=== PATIENT | female | born 1995 | race Caucasian/White ===

== ENCOUNTER 2017-04-08 13:35 | Emergency (ER) | payer SELFPAY ==
[~2017-04-08] VITALS: Ht 160 cm; Wt 99.8 kg
[~2017-04-08 13:35] MED LIST: CLIN300C3 PO; LEVO500T78 PO
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
[2017-04-08] MEDS ORDERED: OSLT75C PO ×2 (13:56→14:20)
--- NOTE | 2017-04-08 13:56 | ED Cough/URI ---
General Chief Complaint: Cough/Cold/Flu Symptoms Stated Complaint: FLU-LIKE SYMPTOMS,COPD,ASTHMA,TIGHTNESS IN CHEST Source: patient Exam Limitations: no limitations History of Present Illness Date Seen by Provider: Apr 08, 2017 Time Seen by Provider: 13:52 Initial Comments To ER with a 2 day history of nausea, vomiting after coughing spells, diarrhea, general malaise, body aches and tightness in her chest. She reports a history of asthma. She has a albuterol nebulizer at home that she's been using several times per day. She is not on any other medications. She does continue to smoke about a half pack per day. She's had chills but no measured fevers. Cough is productive. Timing/Duration: constant Severity/Quality: moderate Associated Symptoms: cough, fever/chills, shortness of breath, wheezing Allergies and Home Medications Allergies Coded Allergies: Cephalosporins (Unverified Allergy, Unknown, 01/22/14) amoxicillin (Unverified Allergy, Unknown, 01/22/14) Home Medications Albuterol Sulfate 1 Puff Puff, Unknown Dose IH Q4H, (Reported) 1 PUFF = 90 MCG Constitutional: see HPI, chills, malaise, weakness EENTM: see HPI Respiratory: see HPI, cough Cardiovascular: no symptoms reported Genitourinary: no symptoms reported Musculoskeletal: no symptoms reported Skin: no symptoms reported Psychiatric/Neurological: No Symptoms Reported Past Oputrtf-Gewlvk-Pnnecu Hx Patient Social History Type Used: Cigarettes Recent Foreign Travel: No Contact w/Someone Who Travel: No Recent Hopitalizations: No Immunizations Up To Date Tetanus Booster (TDap): Less than 5yrs Surgeries Surgeries: Gallbladder Respiratory Respiratory Disorders: Asthma Reproductive System Hx Reproductive Disorders: No Sexually Transmitted Disease: No Family Medical History Significant Family History: No Pertinent Family Hx Physical Exam Vital Signs Vital Sign - Last 12Hours 04/08/17 13:46 Temp 97.8 Pulse 75 Resp 18 B/P (MAP) 115/80 (92) Pulse Ox 97 Capillary Refill : General Appearance: WD/WN, no apparent distress Eyes: Bilateral Eye Normal Inspection, Bilateral Eye PERRL, Bilateral Eye EOMI HEENT: PERRL/EOMI, normal ENT inspection, TMs normal, pharynx normal Neck: non-tender, full range of motion Respiratory: normal breath sounds, no respiratory distress, no accessory muscle use, No decreased breath sounds, No crackles, No wheezing Cardiovascular: regular rate, rhythm, no murmur Gastrointestinal: normal bowel sounds, non tender, soft Neurologic/Psychiatric: alert, normal mood/affect, oriented x 3 Skin: normal color, warm/dry Progress/Results/Core Measures Suspected Sepsis SIRS Temperature: Pulse: Respiratory Rate: Blood Pressure / Mean: Results/Orders Micro Results Microbiology 04/08/17 Influenza Types A,B Antigen (CLIFF) - Final, Complete My Orders Orders - SUSANNE BENAVIDEZ APRN Chest Pa/Lat (2 View) (04/08/17 13:51) Influenza A And B Antigens (04/08/17 13:51) Vital Signs/I&O Vital Sign - Last 12Hours 04/08/17 13:46 Temp 97.8 Pulse 75 Resp 18 B/P (MAP) 115/80 (92) Pulse Ox 97 Capillary Refill : Departure Impression Impression: Primary Impression: Influenza Disposition: 01 HOME, SELF-CARE Condition: Stable Departure-Patient Inst. Decision time for Depature: 13:54 Referrals: LAUREEN MIXON MD (PCP/Family) Primary Care Physician Patient Instructions: Flu Add. Discharge Instructions: 1. Drink plenty of fluids. Do your best to constantly be sipping on some sort of drink. Pedialyte or Gatorade would be great. Tylenol and Motrin for fever control. The symptoms unfortunately stick around for 5-7 days.All discharge instructions reviewed with patient and/or family. Use either the prescribed cough medication or DayQuil/NyQuil yiwe-igg-gbsmyty cough medications however do not use both. Follow-up with your doctor within 1 week. Return to ER for any worsening shortness of breath or other concerns. Voiced understanding. Scripts Promethazine HCl/Codeine (Promethazine-Codeine Syrup) 118 Ml Syrup 5 ML PO Q6H Y for COUGH, #60 ML Prov: SUSANNE BENAVIDEZ APRN 04/08/17 Oseltamivir Phosphate (Tamiflu) 75 Mg Cap 75 MG PO BID, #10 CAP Prov: SUSANNE BENAVIDEZ APRN 04/08/17 Work/School Note: Local Medical Staff Listing, Work Release Form Date Seen in the Emergency Department: Apr 08, 2017 Return to Work: Apr 12, 2017 SUSANNE BENAVIDEZ APRN Apr 08, 2017 13:56
--- NOTE | 2017-04-08 14:10 | Diagnostic Imaging Report ---
Indication: Cough and fever. TIME OF EXAM: 2:24 PM COMPARISON: Correlation is made with prior chest from 12/17/2011. FINDINGS: The heart size is normal. The pulmonary vascularity is unremarkable. The lungs are clear. No infiltrate, effusion or pneumothorax is detected. IMPRESSION: No acute cardiopulmonary process is detected. Dictated by: Dictated on workstation # [id number]
[2017-04-08] MEDS ORDERED: RT-ALBUINH IH (14:15)
[2017-04-08] MEDS ORDERED: CODE118S2 PO (14:20)
[2017-04-08 14:30] VITALS: BP 115/80
== END 2017-04-08 14:31 | disposition home or self-care (01) ==
LOC: EDUNIT# 13:35 → ER 13:38
DX: J11.1 Influenza due to unidentified influenza virus with other respiratory manifestations (principal); J45.909 Unspecified asthma, uncomplicated; Z88.1 Allergy status to other antibiotic agents; Z98.890 Other specified postprocedural states
CPT/HCPCS: 71046; 87804; 99282

== ENCOUNTER 2018-05-31 19:41 | Emergency (ER) | payer MEDICAID, OTHER ==
[~2018-05-31] VITALS: Ht 157.5 cm; Wt 93.0 kg
[~2018-05-31 19:41] MED LIST changes: +CODE118S4 PO; +OSLT75C PO; +RT-ALBUINH IH
--- OUTSIDE RECORDS SUMMARY | 2018-05-31 19:59 | XMS REPORT ---
Author Author ANGELI MAYER Organization [facility] Address [address] [place] [address] Care Team Providers Care Pilot Plant Supervisor Name Role Phone ANGELI MAYER Unavailable PROBLEMS Unknown Problems ALLERGIES No Information ENCOUNTERS Encounter Location Date Diagnosis [facility] [id number] [place] [phone] Feb, Threatened miscarriage O20.0 [facility] [id number] [place] [phone] Feb, Threatened miscarriage O20.0 [facility] [id number] [place] [phone] Feb, Encounter for test, result unknown Z32.00 [facility] [id number] [place] [phone] Apr, Influenza J11.1 [facility] [id number] [place] [phone] Jan, Dental examination Z01.20 [facility] [address] [place] [phone] Dec, Dental examination Z01.20 IMMUNIZATIONS No Known Immunizations SOCIAL HISTORY Never Assessed REASON FOR VISIT Lab PLAN OF CARE Activity Details Pending Test HCG, QUANTITATIVE VITAL SIGNS MEDICATIONS Unknown Medications RESULTS No Results PROCEDURES Procedure Date Ordered Result Body Site VENIPUNCT, ROUTINE* Feb 13, 2018 INSTRUCTIONS MEDICATIONS ADMINISTERED No Known Medications MEDICAL (GENERAL) HISTORY Type Description Date Medical History asthma Medical History bronchitis Surgical History Gallbladder removal 2012
--- OUTSIDE RECORDS SUMMARY | 2018-05-31 19:59 | XMS REPORT ---
Author Author CODEY CALDERON Organization [facility] Address [address] [place] [address] Care Team Providers Care Cement Mixer Name Role Phone CODEY CALDERON Unavailable PROBLEMS Unknown Problems ALLERGIES Substance Reaction Event Type Date Status amoxicillin Unknown Non Drug Allergy Dec, Active penicillin Unknown Non Drug Allergy Dec, Active ENCOUNTERS Encounter Location Date Diagnosis [facility] [place] [address] [place] [phone] Apr, Influenza J11.1 [facility] [address] [phone] Jan, Dental examination Z01.20 [facility] [address] [phone] Dec, Dental examination Z01.20 IMMUNIZATIONS No Known Immunizations SOCIAL HISTORY Never Assessed REASON FOR VISIT [place] PLAN OF CARE Activity Details Follow Up prn Reason:Re evaluation #14 and #15 VITAL SIGNS MEDICATIONS Medication Instructions Dosage Frequency Start Date End Date Duration Status Clindamycin HCl 150 MG Orally every 8 hrs 1 capsule 8h Dec,Dec 7 days Active RESULTS No Results PROCEDURES Procedure Date Ordered Result Body Site LTD ORAL EVALUATION - PROBLEM FOCUS Dec 27, 2016 INTRAORL-PERIAPICAL 1 FILM [id number] Dec 27, 2016 Billing Notes on claim Dec 27, 2016 BITEWING - SINGLE FILM Dec 27, 2016 INSTRUCTIONS MEDICATIONS ADMINISTERED No Known Medications MEDICAL (GENERAL) HISTORY Type Description Date Medical History asthma Medical History bronchitis Surgical History Gallbladder removal 2012
--- OUTSIDE RECORDS SUMMARY | 2018-05-31 19:59 | XMS REPORT ---
Author Author LYLE SEXTON Organization [facility] Address [address] [place] [address] Care Team Providers Care Graduate Research Assistant Name Role Phone LYLE SEXTON Unavailable PROBLEMS Unknown Problems ALLERGIES No Information ENCOUNTERS Encounter Location Date Diagnosis [facility] [address], [place] [phone] Feb, Encounter for test, result unknown Z32.00 [facility] [address] [place] [address] Apr, 2017 Influenza J11.1 [facility] [address] [phone] Jan, Dental examination Z01.20 [facility] [address] [place] [phone] Dec, Dental examination Z01.20 IMMUNIZATIONS No Known Immunizations SOCIAL HISTORY Never Assessed REASON FOR VISIT test (walk-in) PLAN OF CARE VITAL SIGNS MEDICATIONS Unknown Medications RESULTS Name Result Date Reference Range TEST, URINE (IN HOUSE) 2018-02-06 RESULTS Positive Lot # [id number] Control + Exp date 07/2019 PROCEDURES Procedure Date Ordered Result Body Site URINE TEST Feb 06, 2018 INSTRUCTIONS MEDICATIONS ADMINISTERED No Known Medications MEDICAL (GENERAL) HISTORY Type Description Date Medical History asthma Medical History bronchitis Surgical History Gallbladder removal 2012
--- OUTSIDE RECORDS SUMMARY | 2018-05-31 19:59 | XMS REPORT ---
Author Author ANGELI MAYER Organization [facility] Address [address] [place] [address] Care Team Providers Care Multimedia Coordinator Name Role Phone ANGELI MAYER Unavailable PROBLEMS Unknown Problems ALLERGIES No Information ENCOUNTERS Encounter Location Date Diagnosis [facility] [id number] [place] [phone] Feb, First trimester Z34.91 and Threatened miscarriage O20.0 [facility] [id number] [place] [phone] Feb, Threatened miscarriage O20.0 and First trimester Z34.91 [facility] [id number] [place] [phone] Feb, Threatened miscarriage O20.0 [facility] [id number] [place] [phone] Feb, Encounter for test, result unknown Z32.00 [facility] [id number] [place] [phone] Apr, Influenza J11.1 [facility] [address] [place] [phone] Jan, Dental examination Z01.20 [facility] [address] [place] [phone] Dec, Dental examination Z01.20 IMMUNIZATIONS No Known Immunizations SOCIAL HISTORY Never Assessed REASON FOR VISIT Patient Concerns PLAN OF CARE VITAL SIGNS MEDICATIONS Unknown Medications RESULTS No Results PROCEDURES No Known procedures INSTRUCTIONS MEDICATIONS ADMINISTERED No Known Medications MEDICAL (GENERAL) HISTORY Type Description Date Medical History asthma Medical History bronchitis Surgical History Gallbladder removal 2012
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
--- OUTSIDE RECORDS SUMMARY | 2018-05-31 19:59 | XMS REPORT ---
Author Author LILI CARR Organization [facility] Address [address] [place] [address] Care Team Providers Care Field Crop Farming Supervisor Name Role Phone LILI CARR Unavailable PROBLEMS Unknown Problems ALLERGIES Substance Reaction Event Type Date Status amoxicillin Unknown Non Drug Allergy Apr, Active penicillin Unknown Non Drug Allergy Apr, Active ENCOUNTERS Encounter Location Date Diagnosis [facility] [id number] [place] [phone] Apr, Influenza J11.1 [facility] [id number] [phone] Jan, Dental examination Z01.20 [facility] [address] [place] [phone] Dec, Dental examination Z01.20 IMMUNIZATIONS No Known Immunizations SOCIAL HISTORY Never Assessed REASON FOR VISIT Vomiting that started last week. PT was already diagnosed with Flu A and can't hold down her medications-[facility] De [facility] PLAN OF CARE Activity Details Follow Up prn Reason: VITAL SIGNS Height 62 in 2017-04-12 Weight 215.8 lbs 2017-04-12 Temperature 97.9 degrees Fahrenheit 2017-04-12 Heart Rate 84 bpm 2017-04-12 Respiratory Rate 20 2017-04-12 BMI 39.47 kg/m2 2017-04-12 Blood pressure systolic 122 mmHg 2017-04-12 Blood pressure diastolic 76 mmHg 2017-04-12 MEDICATIONS Medication Instructions Dosage Frequency Start Date End Date Duration Status Promethazine HCl 25 MG Orally every 6 hrs, prn nausea 1 tab Apr, Active RESULTS No Results PROCEDURES No Known procedures INSTRUCTIONS MEDICATIONS ADMINISTERED No Known Medications MEDICAL (GENERAL) HISTORY Type Description Date Medical History asthma Medical History bronchitis Surgical History Gallbladder removal 2012
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
[2018-05-31 20:02] VITALS: BP 112/72
== END 2018-05-31 21:07 | disposition left against medical advice (07) ==
LOC: EDUNIT# 19:41 → ER 19:43
DX: O26.892 Other specified pregnancy related conditions, second trimester (principal); R04.0 Epistaxis; R51 Headache; Z3A.21 21 weeks gestation of pregnancy
CPT/HCPCS: 99282

== ENCOUNTER → 2018-08-15 | Outpatient (CLI) | payer MEDICAID ==
[~2018-08-15] MED LIST changes: +FERR325T18 PO; +IBUP-844 PO
--- NOTE | 2018-08-15 12:03 | Diagnostic Imaging Report ---
PROCEDURE: US Renal Bilateral. TECHNIQUE: Multiple real-time grayscale images were obtained over the kidneys in various projections bilaterally. INDICATION: Flank pain, hematuria. FINDINGS: There are no prior renal ultrasound examinations available for comparison. The CT abdomen/pelvis exam of 11/17/2015 failed to show any abnormality of the kidneys or bladder. By history, the patient is approximately 32 weeks gestation. Both kidneys were identified. The right kidney measures 10.8 x 4.8 x 5.3 cm while the kidney is estimated to be 9.0 x 5.1 x 4.6 cm. There is no evidence for a solid renal mass or hydronephrosis of either kidney. There is no evidence of nephrolithiasis either. The bladder is only partially filled and consequently not well evaluated. There is no obvious bladder abnormality evident. Neither ureteral jet was visualized. IMPRESSION: 1. There is no evidence for a solid renal mass or for an acute abnormality of either kidney. 2. The bladder was not well visualized. Dictated by: Dictated on workstation # [id number]
== END ==
LOC: RAD 10:32
PROVIDERS: ATTEND Nurse Practitioner Family
DX: R31.9 Hematuria, unspecified (principal); R10.9 Unspecified abdominal pain
CPT/HCPCS: 76770

== ENCOUNTER 2018-08-16 08:03 | Inpatient (IN) | payer MEDICAID ==
[~2018-08-16] VITALS: Ht 157.5 cm; Wt 93.0 kg
[2018-08-16] VITALS (8 sets, daily range): BP systolic 111–134; BP diastolic 67–84
--- NOTE | 2018-08-16 08:00 | NUR ---
Delivery of viable female in ED prior to this RN's arrival. pt in cot at this time with Dr Mendosa at bedside along with ED staff and Dr Goodson (who is taking care of premature infant just born). 0806 Dr Mendosa delivered intact placenta and fundal massage per dr mendosa. Noted moderate bleeding. Pt with IV fluids infusing to gravity and vitals monitors on along with 02 per nasal cannula continued at this time. 0810 ED RN assessed IV started by EMS to be leaking, that IV discontinued along with iv fluids 0814 this rn started IV in right hand 0815 infusing pitocin wide open to gravity as ordered.
[~2018-08-16 08:03] MED LIST changes: -FERR325T18 PO; -IBUP-844 PO
--- NOTE | 2018-08-16 08:21 | NUR ---
Transferred to on cart to room 313. Assisted to bed. moderate bleeding noted and large clot expressed during bed transfer. noted fundus ff2/u.
--- NOTE | 2018-08-16 08:25 | NUR ---
Dr Hutchinson to bedside and reviewed plan of care of with pt along with plan of care for her. fundal massage per dr hutchinson with large clot expressed, moderate bleeding noted.
--- NOTE | 2018-08-16 08:28 | Emergency Rm Delivery - Mom ---
HPI General Stated Complaint: LABOR Source of Information: Patient, EMS, RN/MD History Gestational Age in Weeks: 32 Hx : 1 Hx Para: 0 History of Present Illness Date Seen by Provider: Aug 16, 2018 Time Seen by Provider: 08:00 Initial Comments Here by EMS from [facility] in route to the OB floor here when mother ultimately precipitously delivered on the EMS cot while in the emergency department. On arrival here, mother was reportedly needing to push and she had been doing this for some time apparently. Once entered the ER, was noted. Patient was moved to trauma room and precipitous delivery occurred. Patient reports that she is approximately 32 weeks. Apparently she had gush of fluid at 2 AM and went to the emergency department in [place] sometime around 6 AM. They were trying to transfer and ultimately brought her here with Dr. Mendosa assisting with transport in the ambulance and at patient's bedside. Patient did have care with Dr. Hutchinson. Onset of Labor - Date: Aug 16, 2018 Onset of Labor - Time: 02:00 Spontaneous Ruture of Membrane: Yes Amniotic Membrane Rupture Time: 02:00 Amniotic Membrane Fluid Descri: Bloody Vaginal Bleeding Description (: unknown prior to delivery but moderate after delivery Complications Events: Labor <37 wks, Prematre Rupture Membrane Intrapartal Events: Bleeding L&D Stage II Delivery Date/Time - Stage II Delivery Date: Aug 16, 2018 Delivery Time: 08:00 Delivery Duration: precipitous on arrival to the emergency department Cord Descript/Complications Cord Vessel Description: 3 Vessels Delivery Type Infant Delivery Method: Spontaneous Vaginal Episiotomy/Perineal Laceration Laceraction(s)/Extensions: Yes Episiotomy Description: Midline Condition of Delivery Delivery Date & Time: 08/16/18 at 0 800 1 minute Comment: 4 5 minute Comment: 5 Condition of Condition of : Living Resuscitation Resuscitation Comments: Care assumed by bindery chief and nursery nurses. Initial vigorous stimulation and warming maneuvers with spontaneous respirations noted. Bulb suctioning completed. Placed on a warmer and resuscitation continued with heart rate initially 120. Oxygen initiated. Advanced maneuvers by bindery chief and nursery team L&D Stage III Stage III Stage III Date: Aug 16, 2018 Stage III Time: 08:06 Pictocin Pitocin Administration Comment: 30 units Pitocin premixed bag initiated bolus rate. Placenta Delivery Placenta Delivery: Spontaneous Departure Physician Communication Time/Spoke - TRAILER PARK MANAGER: 08:03 Time/Spoke - [place] Physician: 08:04 Impression Primary Impression: [place] delivered in emergency department Additional Impression: 32 weeks gestation of Disposition: 09 ADMITTED INPATIENT Condition: Stable Admissions Decision to Admit Reason: Admit from ER (General) Decision to Admit/Date: Aug 16, 2018 Time/Decision to Admit Time: 08:21 SAM BRUMFIELD MD Aug 16, 2018 08:28
--- NOTE | 2018-08-16 08:32 | NUR ---
Cytotec given rectally per Dr Hutchinson
--- NOTE | 2018-08-16 08:35 | NUR ---
Vital signs stable. ff1/u with moderate rubra noted.
--- NOTE | 2018-08-16 08:36 | NUR ---
Pitocin infusing to pump at 999ml/hr
--- NOTE | 2018-08-16 08:50 | NUR ---
Vital signs stable. ff1/u with lt rubra noted, no clots expressed.
--- NOTE | 2018-08-16 08:58 | NUR ---
Perineal examined per dr drake for tears/lacerations. None noted.
[2018-08-16] MEDS ORDERED: OXYTOCIN/NORMAL SALINE 500 ML IV SCH (09:12)
[2018-08-16] MEDS ORDERED: TETANUS,DIPTH,PERTUSS P/F (BOOSTRIX) 0.5 ML VIAL IM ONE (09:15)
[2018-08-16] MEDS ORDERED: WITCH HAZEL(TUCKS) 40 EA JAR TOP PRN (09:15)
[2018-08-16] MEDS ORDERED: MEASLES,MUMPS,RUBELLA 1 EA INJ SQ ONE (09:15)
[2018-08-16] MEDS ORDERED: BENZOCAINE/MENTHOL (DERMOPLAST) 56 ML CAN TP PRN (09:15)
[2018-08-16] MEDS ORDERED: MISOPROSTOL 200 MCG (CYTOTEC) TABLET PO ONE (09:15)
--- NOTE | 2018-08-16 09:20 | NUR ---
ff1/u with lt rubra noted, no clots expressed. vital signs stable.
--- NOTE | 2018-08-16 09:27 | History & Physical-OB ---
OB - Chief Complaint & HPI Date/Time Date of Admission: Date of Admission: Aug 16, 2018 at 08:18 Date seen by a Provider: Aug 16, 2018 Time Seen by a Provider: 09:00 Chief Complaint/History OB-Reason for Admission/Chief: Rupture of Membranes Hx : 1 Hx Para: 0 Gestational Age in Weeks: 32 History of Labs B+, Ab neg Rub Imm HIV/HepB/RPR NR 1hr GTT normal GBS unknown Allergies and Home Medications Allergies Coded Allergies: Cephalosporins (Unverified Allergy, Unknown, 01/22/14) amoxicillin (Unverified Allergy, Unknown, 01/22/14) Home Medications Albuterol Sulfate 1 Puff Puff, Unknown Dose IH Q4H, (Reported) 1 PUFF = 90 MCG Oseltamivir Phosphate 75 Mg Cap, 75 MG PO BID Prescribed by: SUSANNE BENAVIDEZ on 04/08/17 1420 Promethazine HCl/Codeine 118 Ml Syrup, 5 ML PO Q6H PRN for COUGH Prescribed by: SUSANNE BENAVIDEZ on 04/08/17 1420 Patient Home Medication List Home Medication List Reviewed: Yes OB - History Hx of Present Care: Yes Ultrasounds: Normal mid trimester US Obstetrical Complications: None Medical Complications: None Obstetrical History Hx : 1 Hx Para: 0 Delivery History Hx Blood Disorders: No Patient Past Medical History Asthma, Mild intermittent Social History/Family History HIV/AIDS: No Recent Infectious Disease Expo: No Sexually Transmitted Disease: No Alcohol Use: Denies Use Immunizations Tetanus Booster (TDap): Less than 5yrs Rubella: immune RPR/VDRL: Negative GBS Status: Unknown HBsAG: Negative OB - Admission Exam Physical Exam Vitals: Vital Signs 08/16/18 08/16/18 08:03 08:21 Pulse 114 Resp 18 B/P (MAP) 110/97 (101) Pulse Ox 100 O2 Delivery Nasal Cannula HEENT: NCAT Lungs: Clear Abdomen: Other (delivered in ER, boggy above umbilicus, passed large clots with fundal massage) Extremities: Normal Reflexes: Normal OB - Assessment/Plan/Diagnosis Assessment Assessment: labor, rupture of membranes Admission Dx delivery of female Admission Status: Inpatient Order (span 2 midnights) Reason for Inpatient Admission: Delviery Plan Other Plan 23 yo G1 now P1 delivered female in ER @ 32 weeks gestation Routine post care Post Hemorrhage 1000 cc blood loss, Pitocin x2, Cytotec 800 mcg MT, Start Iron Encourage pumping for ANGELI MAYER MD Aug 16, 2018 09:27
--- NOTE | 2018-08-16 09:27 | Postpartum Progress Note ---
Note Note Post Subjective: Patient delivered in ER this AM. Arrived in ER to and patient had approximately 500 cc of blood loss. Starting Pitocin. Cytotec given once mother arrived on floor. VS stable. Mother denies any vision changes or dizziness. Additional History: Mother states that she started having pain yesterday and was seen in the clinic. Upper back pain at that time. Was sent for US for kidney stones that was normal. Mother states that around 2 AM she had a gush of fluid and thought that she had urinated. Around 5 AM pain started to get worse and she presented to [place] ER and was then transferred to with Dr Criselda wolfe. Objective: Physical Exam: General - Alert and oriented, no apparent distress Abdomen - Soft, appropriately tender to palpation, non-distended, fundus firm at umbilicus Vaginal: Small first degree tear that is not bleeding, does not require repair Extremities - no edema, negative Fercho's bilaterally Assessment: Delivery of female infant 32 weeks Gestation Post Hemorrhage 1010 cc SROM at home Plan: s/p Pitocin x2 bags and 800 mcg Cytotec Encourage pumping for Will monitor bleeding closely, if Hgb stable ok to d/c in AM Vitals - Labs Vital Signs - I&O Vital Signs Date Time Temp Pulse Resp B/P (MAP) Pulse Ox O2 Delivery O2 Flow Rate FiO2 08/16/18 08:21 114 18 110/97 (101) 100 08/16/18 08:03 114 18 110/97 (101) 100 Nasal Cannula ANGELI MAYER MD Aug 16, 2018 09:27
--- NOTE | 2018-08-16 10:25 | NUR ---
Info packet discussed. ordering process discussed with pt.
--- NOTE | 2018-08-16 10:25 | NUR ---
ff1/u with lt-mod rubra noted, no clots expressed. vital signs stable.
--- NOTE | 2018-08-16 11:35 | NUR ---
Lab to room for blood draw.
[2018-08-16 11:50] LABS: BASOPHILS % (AUTO) 0 % (0-10); EOSINOPHILS % (AUTO) 0 % (0-10); HEMATOCRIT 28 % (35-52); HEMOGLOBIN 9.5 G/DL (11.5-16.0); LYMPHOCYTES # (AUTO) 0.6 X 10^3 (1.0-4.0); LYMPHOCYTES % (AUTO) 3 % (12-44); MEAN CORPUSCULAR HEMOGLOBIN 33 PG (25-34); MEAN CORPUSCULAR HGB CONC 35 G/DL (32-36); MEAN CORPUSCULAR VOLUME 95 FL (80-99); MONOCYTES % (AUTO) 5 % (0-12); NEUTROPHILS # (AUTO) 19.4 X 10^3 (1.8-7.8); NEUTROPHILS % (AUTO) 92 % (42-75); PLATELET COUNT 203 10^3/uL (130-400); RED CELL DISTRIBUTION WIDTH 12.6 % (10.0-14.5)
--- NOTE | 2018-08-16 11:55 | NUR ---
Assisted up to void, pericare, pad changed and underwear on. ambulates well. denies being dizzy or lightheaded. fresh ice water to bedside table.
[2018-08-16] MEDS: IBUPROFEN 600 MG (MOTRIN) TAB PO SCH ×2 (12:00→18:00)
--- NOTE | 2018-08-16 13:30 | NUR ---
Pt up to shower at this time.
[2018-08-16] MEDS ORDERED: CATHETER FLUSH 10 ML SYR IV SCH (14:00)
--- NOTE | 2018-08-16 14:30 | NUR ---
electric breastpump to pt bedside and pt instructed/educated on use and frequency. pt verbalized understanding
[2018-08-16 18:43] LABS: HEMOGLOBIN 9.7 G/DL (11.5-16.0)
[2018-08-16] MEDS ORDERED: DOCUSATE SODIUM 100 MG (COLACE) CAP PO SCH (21:00)
[2018-08-17 05:21] VITALS: BP 100/58
[2018-08-17 05:53] LABS: BASOPHILS % (AUTO) 0 % (0-10); EOSINOPHILS # (AUTO) 0.2 10^3/uL (0.0-0.3); EOSINOPHILS % (AUTO) 2 % (0-10); HEMATOCRIT 27 % (35-52); HEMOGLOBIN 8.9 G/DL (11.5-16.0); LYMPHOCYTES # (AUTO) 1.7 X 10^3 (1.0-4.0); LYMPHOCYTES % (AUTO) 17 % (12-44); MEAN CORPUSCULAR HEMOGLOBIN 33 PG (25-34); MEAN CORPUSCULAR HGB CONC 34 G/DL (32-36); MEAN CORPUSCULAR VOLUME 97 FL (80-99); MONOCYTES # (AUTO) 0.9 X 10^3 (0.0-1.0); MONOCYTES % (AUTO) 9 % (0-12); NEUTROPHILS # (AUTO) 7.4 X 10^3 (1.8-7.8); NEUTROPHILS % (AUTO) 73 % (42-75); PLATELET COUNT 192 10^3/uL (130-400); RED CELL DISTRIBUTION WIDTH 12.7 % (10.0-14.5); WHITE BLOOD COUNT 10.1 10^3/uL (4.3-11.0)
[2018-08-17] MEDS ORDERED: FERROUS SULF 325 MG (IRON) TAB PO SCH (07:00)
[2018-08-17] MEDS ORDERED: PRENATAL VITAMIN 1 EA TAB PO SCH (07:00)
--- NOTE | 2018-08-17 07:25 | Discharge Summary ---
Diagnosis/Chief Complaint Date of Admission Aug 16, 2018 at 08:18 Date of Discharge 08/17/18 Admission Diagnosis Admission Diagnosis Labor 32 week gestation PROM Discharge Diagnosis Delivery 32 week gestation Post Hemorrhage Discharge Summary-Simple/Stand Procedures Discharge Physical Examination Allergies: Coded Allergies: Cephalosporins (Unverified Allergy, Unknown, 01/22/14) amoxicillin (Unverified Allergy, Unknown, 01/22/14) Vitals & I&Os Vital Sign - Last 12Hours Date Time Temp Pulse Resp B/P (MAP) Pulse Ox O2 Delivery O2 Flow Rate FiO2 08/17/18 05:21 98.5 84 18 100/58 (72) 98 Room Air General Appearance: Alert, Oriented X3, Cooperative HEENT: Mucous Memb Moist/[place] Respiratory: Clear to Auscultation, Normal Air Movement Cardiovascular: Regular Rate, No Murmurs Abdominal: Normal Bowel Sounds, Soft, No Tenderness, Other (Fundus firm and at umbilicus) Extremities: No Edema, No Tenderness/Swelling Neuro: Strength at 5/5 X4 Ext Psych/Mental Status: Mental Status NL, Mood NL Hospital Course Was the Problem List Reviewed?: Yes See final discharge diagnosis. Discussion & Recommendations 23 yo G1 now P1 that delivered 32 week infant in ER after SROM at home @ 2AM, complicated by PPD 1000cc s/p pitocin and cytotec. Home on PPD#1 Discharge Condition at discharge stable Instructions to patient/family Please see electronic discharge instructions given to patient. Discharge Medications Reviewed and agree with Discharge Medication list on patient's Discharge Instruction sheet Clinical Quality Measures DVT/VTE Risk/Contraindication: Risk Factor Score Per Nursin RFS Level Per Nursing on Admit: 1=Low/No VTE PPX Copy Copies To 1: ANGELI MAYER MD, HOLLY R MD Aug 17, 2018 07:24
[2018-08-17] MEDS ORDERED: IBUP-844 PO (07:27)
[2018-08-17] MEDS ORDERED: FERR325T18 PO (07:27)
--- NOTE | 2018-08-17 07:28 | Discharge Instructions ---
Discharge Inst-Women's Serv Depart Medications New, Converted or Re-Newed RX: Transmitted to Pharmacy New Medications: Ferrous Sulfate (Ferrous Sulfate) 325 Mg Tablet 325 MG PO DAILY@0700, #30 TAB Ibuprofen (Ibu) 600 Mg Tablet 600 MG PO Q6HR, #90 TAB Continued Medications: Albuterol Sulfate (Proair Hfa) 1 Puff Puff Unknown Dose IH Q4H, PUFF 1 PUFF = 90 MCG Discontinued Medications: Oseltamivir Phosphate (Tamiflu) 75 Mg Cap 75 MG PO BID, #10 CAP Promethazine HCl/Codeine (Promethazine-Codeine Syrup) 118 Ml Syrup 5 ML PO Q6H PRN for COUGH, #60 ML Follow Up/Instructions Goal/Follow Up: 6 weeks with Evangelina for post Activity Activity: Activity as Tolerated Driving Instructions: You May Drive NO SMOKING: NO SMOKING Nothing Inside Vagina: No Douching, No [place], No Tampons Diet Discharge Diet: No Restrictions Symptoms to Report to : Bleeding Excessive, Fever Over 101 Degrees F, Heart Beat Irreg/Pounding, Shortness of Breath For Any Problems or Questions: Contact Your Physician Copies To 1: ANGELI MAYER MD, HOLLY R MD Aug 17, 2018 07:28
[2018-08-17 08:25] VITALS: BP 116/78
--- NOTE | 2018-08-17 08:30 | NUR ---
PT SITTING UP IN BED, VS OBTAINED. INITIAL SHIFT ASSESSMENT COMPLETED; SEE INTERVENTION FOR FURTHER. PT VOICES THAT SHE RECEIVED THE TDAP VACCINE IN THE CLINIC.
--- NOTE | 2018-08-17 08:34 | NUR ---
DISCHARGE PAPERS PROVIDED AND REVIEWED WITH PT, PT VERBALIZES UNDERSTANDING AND DENIES ANY QUESTIONS AT THIS TIME. PAPER SIGNED.
--- NOTE | 2018-08-17 08:40 | NUR ---
PT DISCHARGED FROM -[facility] TO [facility] VIA AMBULATORY IN STABLE CONDITION ACC BY THIS RN AND S/O. BELONGINGS IN HAND.
== END 2018-08-17 08:40 | disposition home or self-care (01) | DRG 805 ==
LOC: EDUNIT# 08:03 → ER 08:03 → LDRP 08:18
PROVIDERS: ADMIT Family Medicine; ATTEND Family Medicine
PROC: 10E0XZZ Delivery of Products of Conception, External Approach (ICD-10-PCS; principal; 2018-08-16)
DX: O42.013 Preterm premature rupture of membranes, onset of labor within 24 hours of rupture, third trimester (principal); O60.14X0 Preterm labor third trimester with preterm delivery third trimester, not applicable or unspecified; O72.2 Delayed and secondary postpartum hemorrhage; O62.3 Precipitate labor; O99.513 Diseases of the respiratory system complicating pregnancy, third trimester; J45.20 Mild intermittent asthma, uncomplicated; Z3A.32 32 weeks gestation of pregnancy; Z37.0 Single live birth
CPT/HCPCS: 36415; 59409; 85014; 85018; 85025; 85027; 86850; 86900; 86901; 87088; 88307

== ENCOUNTER 2019-02-01 07:20 | Emergency (ER) | payer MEDICAID ==
[~2019-02-01] VITALS: Ht 157 cm; Wt 122.8 kg
[2019-02-01 07:20] VITALS: BP 149/91
[~2019-02-01 07:20] MED LIST changes: +FERR325T18 PO; +IBUP-844 PO
[2019-02-01] MEDS ORDERED: VARE1TAB21 (07:32)
[2019-02-01] MEDS ORDERED: RT-ALBUINH (07:32)
[2019-02-01] MEDS ORDERED: FERR-84 (07:32)
[2019-02-01] MEDS ORDERED: KETOROLAC 60 MG/2 ML VIAL IM STA (07:39)
[2019-02-01] MEDS ORDERED: CLINDAMYCIN 150 MG (CLEOCIN) CAP PO STA (07:40)
[2019-02-01] MEDS ORDERED: RX-CLINDAMYCIN 150 MG (CLEOCIN) CAP PPK#4 PO STA (07:40)
[2019-02-01] MEDS ORDERED: LIDOCAINE 2% VISCOUS 15 ML UDC PO ONE (07:45)
--- NOTE | 2019-02-01 07:54 | ED EENT ---
History of Present Illness General Chief Complaint: Dental Problems/Pain Stated Complaint: DENTAL PAIN Nursing Triage Note: ARRIVED VIA AMB TO ROOM 07. COMPLAINS OF LEFT UPPER DENTAL PAIN STARTING LAST NIGHT THAT IS RADIATING TO THE ROOF OF HER MOUTH. Source: patient Exam Limitations: no limitations History of Present Illness Date Seen by Provider: Feb 01, 2019 Time Seen by Provider: 07:22 Initial Comments Here with report of dental pain and concerns of abscess. Feels swelling near the left upper posterior tooth and over the palate of the mouth on that side. States the pain is much worse today. She did take Tylenol and ibuprofen last night but nothing this morning. States the pain is quite significant. Denies fever or chills. Timing/Duration: gradual, yesterday Severity: moderate, severe Location: dental Prearrival Treatment: over the counter meds Associated Symptoms: No drooling, No fever, No sore throat; tooth pain; No voice change Allergies and Home Medications Allergies Coded Allergies: Cephalosporins (Unverified Allergy, Unknown, 01/22/14) amoxicillin (Unverified Allergy, Unknown, 01/22/14) Patient Home Medication List Home Medication List Reviewed: Yes Review of Systems Review of Systems Constitutional: see HPI; No chills, No fever Ears: No Symptoms Reported Nose: no symptoms reported Mouth: see HPI, pain, swelling Throat: denies swelling, denies neck stiffness, denies hoarse, denies aphonia Respiratory: No cough, No short of breath Cardiovascular: no symptoms reported Past Atpguqq-Pfkmxc-Ihtins Hx Past Med/Social Hx: Reviewed Nursing Past Med/Soc Hx Patient Social History Alcohol Use: Occasionally Uses Recreational Drug Use: No Smoking Status: Current Everyday Smoker Type Used: Cigarettes Recent Foreign Travel: No Contact w/Someone Who Travel: No Recent Infectious Disease Expo: No Recent Hopitalizations: No Immunizations Up To Date Tetanus Booster (TDap): Less than 5yrs PED Vaccines UTD: Yes Seasonal Allergies Seasonal Allergies: No Past Medical History Surgeries: Yes (cholecystectomy) Gallbladder Respiratory: Yes Asthma Currently Using CPAP: No Currently Using BIPAP: No Cardiac: No Neurological: No : No Reproductive Disorders: No Female Reproductive Disorders: Denies Sexually Transmitted Disease: No HIV/AIDS: No Genitourinary: No Gastrointestinal: No Musculoskeletal: No Endocrine: No HEENT: No Cancer: No Psychosocial: No Integumentary: No Blood Disorders: No Family Medical History Reviewed Nursing Family Hx Patient reports no known family medical history. No Pertinent Family Hx Physical Exam Vital Signs Vital Signs - First Documented 02/01/19 07:20 Temp 36.3 Pulse 84 Resp 16 B/P (MAP) 149/91 (110) Pulse Ox 99 O2 Delivery Room Air Height, Weight, BMI Height: 5'2.00" Weight: 205lbs. oz. [id number]; 49.00 BMI Method:Stated General Appearance: WD/WN, no apparent distress Mouth/Throat: pharynx normal, dental tenderness (Near #15); No tonsillar swelling, No trismus, No uvula swelling, No voice changes; other (abscess noted emanating from near #15 and into the roof of the mouth but does not cross midline and does not cross into the soft palate.) Cardiovascular: regular rate, rhythm, no murmur Respiratory: lungs clear, normal breath sounds Neurologic/Psychiatric: alert, oriented x 3 Skin: normal color, warm/dry Procedures/Interventions I&D : Blade Size: 11 Progress Periapical abscess near tooth #15. Topical lidocaine applied and then 1 mL of bupivacaine injected locally around area of concern. I did small incision with 11 blade and did get some drainage. I did needle aspiration to another area more centrally over the hard palate and did get some purulent drainage. Overall patient feels much better afterwards. Progress/Results/Core Measures Results/Orders My Orders Orders - SMA BRUMFIELD MD Ketorolac Injection (Toradol Injection) (02/01/19 07:39) Lidocaine 2% Viscous 15 Ml (Xylocaine Vi (02/01/19 07:45) Clindamycin Capsule (Cleocin Capsule) (02/01/19 07:40) Rx-Clindamycin Capsule (Rx-Cleocin Capsu (02/01/19 07:40) Medications Given in ED Current Medications Medications Dose Ordered Sig/Reg Route Start Time Stop Time Status Last Admin Dose Admin Lidocaine HCl 30 ml ONCE ONCE PO 02/01/19 07:45 02/01/19 07:46 DC 02/01/19 07:47 30 ML Vital Signs/I&O 02/01/19 07:20 Temp 36.3 Pulse 84 Resp 16 B/P (MAP) 149/91 (110) Pulse Ox 99 O2 Delivery Room Air Blood Pressure Mean: 110 POS Progress Progress Note : Progress Note Seen and evaluated. Lidocaine topical applied. Toradol 60 mg IM. Incision and draining of the abscess near number 15 tooth done. Clindamycin 3 mg by mouth and go pack given. 0820: Overall much improved after I&D. Discharged home with return precautions. Patient verbalize understanding instructions and plan. Departure Impression Primary Impression: Dental abscess Disposition: HOME, SELF-CARE Condition: Improved Departure-Patient Inst. Decision time for Depature: 07:59 Referrals: NO,LOCAL PHYSICIAN (PCP) Primary Care Physician ANGELI MAYER MD (Family) Primary Care Physician Patient Instructions: Tooth Abscess (DC) Add. Discharge Instructions: All discharge instructions reviewed with patient and/or family. Voiced understanding. You may take ibuprofen 800 mg every 8 hours as needed for pain. You may also take Tylenol/acetaminophen 1000 mg every 8 hours as needed for pain. Rinse mouth with salt water 3 times daily and as needed. You should rinse your mouth with fresh water after eating. The abscess may continue to drain for some time. Take antibiotics as directed. It is very important that you follow-up with a dentist as soon as possible. Return for worse pain, fever, vomiting, swallowing or breathing problems or other concerns as needed. Scripts Clindamycin HCl (Clindamycin HCl) 300 Mg Capsule 300 MG PO Q6H for 7 Days, #28 CAP 0 Refills Prov: SAM BRUMFIELD MD 02/01/19 Images Mouth/Nose 1 - Swelling, Tenderness 2 - Caries SAM BRUMFIELD MD Feb 01, 2019 07:54 POS
[2019-02-01] MEDS ORDERED: CLIN300C11 PO (08:21)
== END 2019-02-01 08:37 | disposition home or self-care (01) ==
LOC: EDUNIT# 07:20 → ER 07:21
DX: K04.7 Periapical abscess without sinus (principal); J45.909 Unspecified asthma, uncomplicated; F17.210 Nicotine dependence, cigarettes, uncomplicated; Z88.1 Allergy status to other antibiotic agents
CPT/HCPCS: 41800; 96372

== ENCOUNTER → 2020-12-30 | Outpatient (CLI) | payer MEDICAID ==
[~2020-12-30] MED LIST changes: +CLIN-144 PO; +FERR-84; +RT-ALBUINH; +VARE1TAB21
--- NOTE | 2020-12-30 16:14 | Diagnostic Imaging Report ---
EXAMINATION: Magnetic resonance imaging of the left ankle without contrast. DATE: December 30, 2020. COMPARISON: None. HISTORY: 25-year-old female, left ankle pain. TECHNIQUE: Magnetic Resonance Imaging sequences were performed of the ankle without contrast. [< >] FINDINGS: TENDONS AND LIGAMENTS: The Achilles tendon is unremarkable. There is a small amount of fluid in the tendon sheaths of tibialis posterior and flexor digitorum longus. There is no identified tear of a posterior flexor tendon. The peroneal tendons - peroneus longus and peroneus brevis - are intact. The anterior extensor tendons - tibialis anterior, extensor hallucis longus and extensor digitorum longus tendons - are intact. The anterior and posterior syndesmotic ligaments are intact. The anterior talofibular, posterior talofibular, calcaneofibular and deltoid ligaments are intact. The plantar fascia is intact. JOINTS: The ankle mortise is intact. The subtalar and visualized joints of the mid-foot are intact. BONE: The bones all have normal configuration. The bone marrow signal is within normal limits. Specifically, negative for fracture, osteomyelitis, osteonecrosis, or marrow replacing process. The talar dome is intact. BURSAE AND SOFT TISSUES: There is loss of normal fat signal in the sinus tarsi. The sinus tarsi ligaments are indistinct. IMPRESSION: 1. Loss of normal fat signal in the sinus tarsi which may reflect subtalar sprain injury and/or sinus tarsi syndrome. 2. Intact lateral ankle ligament complex, deltoid ligament complex, and syndesmotic ligaments. 3. No acute fracture or bone contusion. Intact talar dome. 4. Small amounts of fluid in the tendon sheaths of tibialis posterior and flexor digitorum longus which may potentially reflect low-level tenosynovitis.. Recommend correlation for symptoms. Negative for tendon tear. Dictated by: Dictated on workstation # [id number]
== END ==
LOC: RAD 14:45
PROVIDERS: ATTEND Nurse Practitioner
DX: M65.872 Other synovitis and tenosynovitis, left ankle and foot (principal)
CPT/HCPCS: 73721